=== PATIENT | male | born 1940 | race Caucasian/White ===

== ENCOUNTER 2020-03-04 00:59 | Inpatient (IN) | payer MEDICARE ==
[2020-03-04] MEDS ORDERED: Vancomycin HCl 2.5 GM in Sodium Chloride 0.9% 500 ML IVPB SCH (04:30)
[2020-03-04] MEDS ORDERED: Ondansetron PF 4 MG/2 ML Vial ONE (04:54)
[2020-03-04 08:03] VITALS: BMI 42.5
[2020-03-04] MEDS ORDERED: Amlodipine 5 MG TAB PO SCH (09:00)
[2020-03-04] MEDS ORDERED: Non-Formulary Item 1 EACH (Insulin Detemir [Levemir Flextouch] 100 UNIT/ML Insuln.Pen) SQ SCH (09:07)
[2020-03-04] MEDS ORDERED: Tamsulosin HCl 0.4 MG CAP PO SCH (09:07)
[2020-03-04] MEDS ORDERED: Finasteride 5 MG TAB PO SCH (09:45)
[2020-03-04] MEDS ORDERED: Insulin Glargine 11 UNITS in Pre-Filled Syringe 1 EACH SC SCH (09:45)
[2020-03-04] MEDS: Ondansetron ODT 4 MG TAB PO PRN ×2 (09:58→16:24)
[2020-03-04] MEDS: Tamsulosin HCl 0.4 MG CAP PO SCH (10:59)
[2020-03-04] MEDS: Finasteride 5 MG TAB PO SCH (11:00)
[2020-03-04] MEDS ORDERED: Heparin 1,000 UNITS/ML VIAL ONE (11:21)
[2020-03-04] MEDS ORDERED: Dextrose 5% in Water 1,000 ML IV PRN (12:43)
[2020-03-04] MEDS ORDERED: Dextrose 50% Abboject 50 ML SYRINGE SLOW IVP PRN (12:43)
[2020-03-04] MEDS ORDERED: Piperacillin/Tazobactam 3.375 GM in Sodium Chloride 0.9% 100 ML IVPB SCH (14:00)
[2020-03-04] MEDS ORDERED: Magnevist 469MG/ML 20 ML VIAL ONE (14:27)
[2020-03-04] MEDS: traMADol HCl 50 MG TAB PO SCH ×2 (14:44→20:00)
[2020-03-04] MEDS: Vancomycin 1.5 GRAM/300 ML BAG 1.5 GM in Premix Bag 1 BAG IVPB SCH (14:51)
[2020-03-04] MEDS ORDERED: Promethazine HCl 12.5 MG in Sodium Chloride 0.9% 50 ML IVPB PRN (16:27)
[2020-03-04] MEDS: Simvastatin 10 MG TAB PO SCH (20:01)
[2020-03-04] MEDS: cefTRIAXone\\ROCEPHIN 2 GM in Sodium Chloride 0.9% 100 ML IVPB SCH (20:01)
[2020-03-04] MEDS ORDERED: Non-Formulary Item 1 EACH (Benazepril Hcl [Benazepril Hcl] 40 MG Tablet) PO SCH (21:00)
[2020-03-05] MEDS: traMADol HCl 50 MG TAB PO SCH ×5 (02:14→20:21)
[2020-03-05] MEDS: Vancomycin 1.5 GRAM/300 ML BAG 1.5 GM in Premix Bag 1 BAG IVPB SCH ×2 (02:15→13:18)
[2020-03-05] MEDS: Ondansetron ODT 4 MG TAB PO PRN (03:42)
[2020-03-05] MEDS ORDERED: Sodium Chloride 0.9% 1,000 ML IV SCH (05:45)
[2020-03-05] MEDS ORDERED: Sodium Chloride 0.9% 500 ML IV SCH (05:45)
[2020-03-05] MEDS: Cyclobenzaprine 10 MG TAB PO PRN (06:00)
[2020-03-05] MEDS: Cyanocobalamin (Vitamin B-12) 1,000 MCG TAB PO SCH (08:06)
[2020-03-05] MEDS: Cholecalciferol 1,000 UNITS (25 MCG) TAB PO SCH (08:06)
[2020-03-05] MEDS: Finasteride 5 MG TAB PO SCH (08:07)
[2020-03-05] MEDS: Tamsulosin HCl 0.4 MG CAP PO SCH (08:07)
[2020-03-05] MEDS ORDERED: Non-Formulary Item 1 EACH (Omeprazole [Omeprazole] 20 MG Capsule.Dr) PO SCH (09:00)
[2020-03-05] MEDS ORDERED: Furosemide 40 MG TAB PO SCH (09:00)
[2020-03-05] MEDS ORDERED: Furosemide 80 MG TAB PO SCH (09:00)
[2020-03-05] MEDS ORDERED: Non-Formulary Item 1 EACH (Cyanocobalamin (Vitamin B-12) [Vitamin B12] 2,500 MCG Tablet) PO SCH (09:00)
[2020-03-05] MEDS ORDERED: Lisinopril 20 MG TAB PO SCH ×2 (09:00→15:00)
[2020-03-05] MEDS ORDERED: Non-Formulary Item 1 EACH (Cholecalciferol (Vitamin D3) [Vitamin D3] 5,000 UNITS Capsule) PO SCH (09:00)
[2020-03-05] MEDS: Insulin Glargine 11 UNITS in Pre-Filled Syringe 1 EACH SC SCH (09:40)
[2020-03-05 09:45] LABS: #Basophils 0.1 thou/uL (0.0-0.2); #Lymphocytes 0.9 thou/uL (1.20-3.40); #Monocytes 1.4 thou/uL (0.11-0.59); #Neutrophils 9.9 thou/uL (1.40-6.50); %Basophils 0.5 % (0.0-1.0); %Eosinophils 0.3 % (0.0-10.0); %Lymphocytes 7.7 % (21.0-51.0); %Monocytes 11.2 % (0.0-10.0); %Neutrophils 80.3 % (42.0-75.0); Hemoglobin 12.1 g/dL (14.0-18.0); Mean Corpuscular HGB CONC 34.3 g/dL (32.0-36.0); Mean Corpuscular Hemoglobin 30.6 pg (27.0-31.0); Mean Corpuscular Volume 89.2 fL (78.0-98.0); Mean Platelet Volume 6.5 fL (7.4-10.4); Platelet Count 260 thou/uL (130-400); RBC Distribution Width 11.5 % (11.5-14.5); Red Blood Cell (RBC) Count 3.96 mill/uL (4.70-6.10); White Blood Cell (WBC) Count 12.3 thou/uL (4.8-10.8)
[2020-03-05 10:03] LABS: Anion Gap 17 mmol/L (10-20); BUN (Urea Nitrogen) 23 mg/dL (8.4-25.7); CRP (Inflammatory) 4.27 mg/dL (= or < 0.5); Calc. Creatinine Clearance 56 mL/min (70-130); Calcium 8.3 mg/dL (7.8-10.44); Carbon Dioxide 21 mmol/L (23-31); Chloride 97 mmol/L (98-107); Glucose 92 mg/dL (83-110); Potassium 4.2 mmol/L (3.5-5.1); Sodium 131 mmol/L (136-145)
[2020-03-05] MEDS ORDERED: Amlodipine 5 MG TAB PO SCH (15:00)
[2020-03-05] MEDS: HumaLOG 300 UNITS/3 ML VIAL SC PRN ×2 (16:47→20:34)
[2020-03-05] MEDS: cefTRIAXone\\ROCEPHIN 2 GM in Sodium Chloride 0.9% 100 ML IVPB SCH (20:20)
[2020-03-05] MEDS: Aspirin 81 mg Enteric Coated Tablet PO SCH (20:21)
[2020-03-05] MEDS: Simvastatin 10 MG TAB PO SCH (20:21)
[2020-03-06] MEDS: traMADol HCl 50 MG TAB PO SCH ×4 (01:46→20:15)
[2020-03-06] MEDS: Vancomycin 1.5 GRAM/300 ML BAG 1.5 GM in Premix Bag 1 BAG IVPB SCH ×2 (01:46→13:24)
[2020-03-06] MEDS: Cholecalciferol 1,000 UNITS (25 MCG) TAB PO SCH (08:06)
[2020-03-06] MEDS: Lisinopril 20 MG TAB PO SCH (08:06)
[2020-03-06] MEDS: Finasteride 5 MG TAB PO SCH (08:06)
[2020-03-06] MEDS: Tamsulosin HCl 0.4 MG CAP PO SCH (08:07)
[2020-03-06] MEDS: Amlodipine 5 MG TAB PO SCH (08:08)
[2020-03-06] MEDS: Cyanocobalamin (Vitamin B-12) 1,000 MCG TAB PO SCH (08:09)
[2020-03-06] MEDS: Insulin Glargine 11 UNITS in Pre-Filled Syringe 1 EACH SC SCH (08:09)
[2020-03-06 10:22] LABS: #Basophils 0.1 thou/uL (0.0-0.2); #Eosinphils 0.1 thou/uL (0.0-0.7); #Lymphocytes 0.9 thou/uL (1.20-3.40); #Monocytes 1.5 thou/uL (0.11-0.59); #Neutrophils 8.3 thou/uL (1.40-6.50); %Basophils 0.5 % (0.0-1.0); %Lymphocytes 8.4 % (21.0-51.0); %Monocytes 13.8 % (0.0-10.0); %Neutrophils 76.3 % (42.0-75.0); Hemoglobin 11.3 g/dL (14.0-18.0); Mean Corpuscular HGB CONC 34.2 g/dL (32.0-36.0); Mean Corpuscular Hemoglobin 30.4 pg (27.0-31.0); Mean Corpuscular Volume 88.8 fL (78.0-98.0); Mean Platelet Volume 6.9 fL (7.4-10.4); Platelet Count 218 thou/uL (130-400); RBC Distribution Width 11.5 % (11.5-14.5); Red Blood Cell (RBC) Count 3.71 mill/uL (4.70-6.10); White Blood Cell (WBC) Count 10.9 thou/uL (4.8-10.8)
[2020-03-06 10:38] LABS: Anion Gap 16 mmol/L (10-20); BUN (Urea Nitrogen) 33 mg/dL (8.4-25.7); Calc. Creatinine Clearance 48 mL/min (70-130); Calcium 8.2 mg/dL (7.8-10.44); Carbon Dioxide 18 mmol/L (23-31); Chloride 95 mmol/L (98-107); Glucose 107 mg/dL (83-110); Potassium 4.2 mmol/L (3.5-5.1); Sodium 125 mmol/L (136-145)
[2020-03-06] MEDS: Ondansetron ODT 4 MG TAB PO PRN (10:55)
[2020-03-06] MEDS: HumaLOG 300 UNITS/3 ML VIAL SC PRN ×2 (16:49→22:11)
[2020-03-06] MEDS ORDERED: Sodium Chloride 0.9% 500 ML IV SCH (18:45)
[2020-03-06] MEDS: cefTRIAXone\\ROCEPHIN 2 GM in Sodium Chloride 0.9% 100 ML IVPB SCH (20:15)
[2020-03-06] MEDS: Simvastatin 10 MG TAB PO SCH (20:15)
[2020-03-06] MEDS: Aspirin 81 mg Enteric Coated Tablet PO SCH (20:24)
[2020-03-07] MEDS: Vancomycin 1.5 GRAM/300 ML BAG 1.5 GM in Premix Bag 1 BAG IVPB SCH (03:00)
[2020-03-07] MEDS: traMADol HCl 50 MG TAB PO SCH ×4 (03:01→20:24)
[2020-03-07 05:57] LABS: #Eosinphils 0.2 thou/uL (0.0-0.7); #Lymphocytes 1.2 thou/uL (1.20-3.40); #Monocytes 1.1 thou/uL (0.11-0.59); #Neutrophils 7.4 thou/uL (1.40-6.50); %Basophils 0.4 % (0.0-1.0); %Eosinophils 1.6 % (0.0-10.0); %Lymphocytes 11.7 % (21.0-51.0); %Monocytes 11.5 % (0.0-10.0); %Neutrophils 74.9 % (42.0-75.0); Hemoglobin 10.6 g/dL (14.0-18.0); Mean Corpuscular Hemoglobin 30.3 pg (27.0-31.0); Mean Corpuscular Volume 89.2 fL (78.0-98.0); Platelet Count 252 thou/uL (130-400); RBC Distribution Width 11.5 % (11.5-14.5); Red Blood Cell (RBC) Count 3.51 mill/uL (4.70-6.10); White Blood Cell (WBC) Count 9.9 thou/uL (4.8-10.8)
[2020-03-07 06:17] LABS: Anion Gap 17 mmol/L (10-20); BUN (Urea Nitrogen) 42 mg/dL (8.4-25.7); CRP (Inflammatory) 15.94 mg/dL (= or < 0.5); Calc. Creatinine Clearance 32 mL/min (70-130); Calcium 8.1 mg/dL (7.8-10.44); Carbon Dioxide 16 mmol/L (23-31); Chloride 95 mmol/L (98-107); Glucose 113 mg/dL (83-110); Potassium 4.4 mmol/L (3.5-5.1); Sodium 124 mmol/L (136-145)
[2020-03-07] MEDS: Tamsulosin HCl 0.4 MG CAP PO SCH (08:00)
[2020-03-07] MEDS: Cholecalciferol 1,000 UNITS (25 MCG) TAB PO SCH (08:00)
[2020-03-07] MEDS: Finasteride 5 MG TAB PO SCH (08:00)
[2020-03-07] MEDS: Cyanocobalamin (Vitamin B-12) 1,000 MCG TAB PO SCH (08:01)
[2020-03-07] MEDS: Amlodipine 5 MG TAB PO SCH (08:01)
[2020-03-07] MEDS: Lisinopril 20 MG TAB PO SCH (08:01)
[2020-03-07] MEDS: Insulin Glargine 11 UNITS in Pre-Filled Syringe 1 EACH SC SCH (08:48)
[2020-03-07] MEDS: HumaLOG 300 UNITS/3 ML VIAL SC PRN ×2 (12:44→17:29)
[2020-03-07 13:49] LABS: Vancomycin, Trough 58.7 ug/mL
[2020-03-07] MEDS ORDERED: Vancomycin 1.5 GRAM/300 ML BAG 1.5 GM in Premix Bag 1 BAG IVPB SCH (14:00)
[2020-03-07] MEDS: Dronabinol 2.5 MG CAP PO SCH (17:29)
[2020-03-07 18:23] LABS: Anion Gap 17 mmol/L (10-20); BUN (Urea Nitrogen) 49 mg/dL (8.4-25.7); Calc. Creatinine Clearance 30 mL/min (70-130); Calcium 8.1 mg/dL (7.8-10.44); Carbon Dioxide 18 mmol/L (23-31); Chloride 93 mmol/L (98-107); Glucose 160 mg/dL (83-110); Potassium 4.6 mmol/L (3.5-5.1); Sodium 123 mmol/L (136-145)
[2020-03-07] MEDS: Ondansetron ODT 4 MG TAB PO PRN (18:29)
[2020-03-07] MEDS: Aspirin 81 mg Enteric Coated Tablet PO SCH (20:24)
[2020-03-07] MEDS: Simvastatin 10 MG TAB PO SCH (20:24)
[2020-03-07] MEDS: cefTRIAXone\\ROCEPHIN 2 GM in Sodium Chloride 0.9% 100 ML IVPB SCH (20:25)
[2020-03-08] MEDS: traMADol HCl 50 MG TAB PO SCH ×4 (03:05→19:56)
[2020-03-08] MEDS: Dronabinol 2.5 MG CAP PO SCH ×2 (06:38→16:50)
[2020-03-08 06:57] LABS: #Eosinphils 0.2 thou/uL (0.0-0.7); #Lymphocytes 0.8 thou/uL (1.20-3.40); #Monocytes 0.9 thou/uL (0.11-0.59); #Neutrophils 6.2 thou/uL (1.40-6.50); %Basophils 0.4 % (0.0-1.0); %Eosinophils 2.7 % (0.0-10.0); %Lymphocytes 10.1 % (21.0-51.0); %Monocytes 10.5 % (0.0-10.0); %Neutrophils 76.2 % (42.0-75.0); Hemoglobin 11.2 g/dL (14.0-18.0); Mean Corpuscular HGB CONC 34.4 g/dL (32.0-36.0); Mean Corpuscular Hemoglobin 30.7 pg (27.0-31.0); Mean Corpuscular Volume 89.5 fL (78.0-98.0); Mean Platelet Volume 6.9 fL (7.4-10.4); Platelet Count 199 thou/uL (130-400); RBC Distribution Width 11.3 % (11.5-14.5); Red Blood Cell (RBC) Count 3.65 mill/uL (4.70-6.10); White Blood Cell (WBC) Count 8.1 thou/uL (4.8-10.8)
[2020-03-08 07:07] LABS: Anion Gap 20 mmol/L (10-20); BUN (Urea Nitrogen) 50 mg/dL (8.4-25.7); CRP (Inflammatory) 11.81 mg/dL (= or < 0.5); Calc. Creatinine Clearance 32 mL/min (70-130); Calcium 8.2 mg/dL (7.8-10.44); Carbon Dioxide 13 mmol/L (23-31); Chloride 96 mmol/L (98-107); Glucose 129 mg/dL (83-110); Potassium 4.6 mmol/L (3.5-5.1); Sodium 124 mmol/L (136-145)
[2020-03-08] MEDS: Cholecalciferol 1,000 UNITS (25 MCG) TAB PO SCH (09:04)
[2020-03-08] MEDS: Finasteride 5 MG TAB PO SCH (09:05)
[2020-03-08] MEDS: Cyanocobalamin (Vitamin B-12) 1,000 MCG TAB PO SCH (09:05)
[2020-03-08] MEDS: Tamsulosin HCl 0.4 MG CAP PO SCH (09:05)
[2020-03-08] MEDS: Insulin Glargine 11 UNITS in Pre-Filled Syringe 1 EACH SC SCH (09:31)
[2020-03-08 13:45] LABS: Vancomycin, Random 46.2 ug/mL (See Comment)
[2020-03-08] MEDS: HumaLOG 300 UNITS/3 ML VIAL SC PRN (16:36)
[2020-03-08 17:00] LABS: Anion Gap 15 mmol/L (10-20); BUN (Urea Nitrogen) 54 mg/dL (8.4-25.7); Calc. Creatinine Clearance 37 mL/min (70-130); Calcium 8.5 mg/dL (7.8-10.44); Carbon Dioxide 19 mmol/L (23-31); Chloride 94 mmol/L (98-107); Glucose 150 mg/dL (83-110); Potassium 4.7 mmol/L (3.5-5.1); Sodium 123 mmol/L (136-145)
[2020-03-08] MEDS ORDERED: Sodium Chloride 1 GM TAB PO SCH (19:00)
[2020-03-08] MEDS: cefTRIAXone\\ROCEPHIN 2 GM in Sodium Chloride 0.9% 100 ML IVPB SCH (19:54)
[2020-03-08] MEDS: Simvastatin 10 MG TAB PO SCH (19:56)
[2020-03-08] MEDS: Aspirin 81 mg Enteric Coated Tablet PO SCH (19:57)
[2020-03-09] MEDS: traMADol HCl 50 MG TAB PO SCH ×4 (00:59→20:20)
[2020-03-09] MEDS: Ondansetron ODT 4 MG TAB PO PRN (02:47)
[2020-03-09] MEDS: Dronabinol 2.5 MG CAP PO SCH ×2 (06:02→16:12)
[2020-03-09] MEDS: Tamsulosin HCl 0.4 MG CAP PO SCH (08:14)
[2020-03-09] MEDS: Cholecalciferol 1,000 UNITS (25 MCG) TAB PO SCH (08:14)
[2020-03-09] MEDS: Cyanocobalamin (Vitamin B-12) 1,000 MCG TAB PO SCH (08:14)
[2020-03-09] MEDS: Finasteride 5 MG TAB PO SCH (08:14)
[2020-03-09 08:26] LABS: #Eosinphils 0.2 thou/uL (0.0-0.7); #Monocytes 0.7 thou/uL (0.11-0.59); #Neutrophils 5.2 thou/uL (1.40-6.50); %Basophils 0.4 % (0.0-1.0); %Eosinophils 2.3 % (0.0-10.0); %Lymphocytes 13.6 % (21.0-51.0); %Monocytes 10.3 % (0.0-10.0); %Neutrophils 73.4 % (42.0-75.0); Hemoglobin 11.6 g/dL (14.0-18.0); Mean Corpuscular HGB CONC 34.3 g/dL (32.0-36.0); Mean Corpuscular Hemoglobin 30.3 pg (27.0-31.0); Mean Corpuscular Volume 88.3 fL (78.0-98.0); Mean Platelet Volume 6.8 fL (7.4-10.4); Platelet Count 213 thou/uL (130-400); RBC Distribution Width 11.3 % (11.5-14.5); Red Blood Cell (RBC) Count 3.83 mill/uL (4.70-6.10); White Blood Cell (WBC) Count 7.1 thou/uL (4.8-10.8)
[2020-03-09 08:45] LABS: Anion Gap 18 mmol/L (10-20); BUN (Urea Nitrogen) 49 mg/dL (8.4-25.7); Calc. Creatinine Clearance 55 mL/min (70-130); Calcium 8.7 mg/dL (7.8-10.44); Carbon Dioxide 17 mmol/L (23-31); Chloride 99 mmol/L (98-107); Glucose 121 mg/dL (83-110); Potassium 4.9 mmol/L (3.5-5.1); Sodium 129 mmol/L (136-145)
[2020-03-09] MEDS ORDERED: Sodium Chloride 1 GM TAB PO SCH (09:00)
[2020-03-09] MEDS: Insulin Glargine 11 UNITS in Pre-Filled Syringe 1 EACH SC SCH (09:17)
[2020-03-09 13:21] LABS: Anion Gap 14 mmol/L (10-20); BUN (Urea Nitrogen) 50 mg/dL (8.4-25.7); Calc. Creatinine Clearance 60 mL/min (70-130); Calcium 8.7 mg/dL (7.8-10.44); Carbon Dioxide 19 mmol/L (23-31); Chloride 98 mmol/L (98-107); Glucose 119 mg/dL (83-110); Potassium 4.8 mmol/L (3.5-5.1); Sodium 126 mmol/L (136-145)
[2020-03-09] MEDS: Sodium Bicarbonate Tab 325 MG TAB PO SCH ×2 (15:22→20:22)
[2020-03-09] MEDS ORDERED: Simethicone Chewable 80 MG TAB PO PRN (16:00)
[2020-03-09 17:22] LABS: Anion Gap 12 mmol/L (10-20); BUN (Urea Nitrogen) 48 mg/dL (8.4-25.7); Calc. Creatinine Clearance 64 mL/min (70-130); Calcium 8.7 mg/dL (7.8-10.44); Carbon Dioxide 22 mmol/L (23-31); Chloride 98 mmol/L (98-107); Glucose 137 mg/dL (83-110); Potassium 4.7 mmol/L (3.5-5.1); Sodium 127 mmol/L (136-145)
[2020-03-09] MEDS: cefTRIAXone\\ROCEPHIN 2 GM in Sodium Chloride 0.9% 100 ML IVPB SCH (20:20)
[2020-03-09] MEDS: Aspirin 81 mg Enteric Coated Tablet PO SCH (20:22)
[2020-03-09] MEDS: Simvastatin 10 MG TAB PO SCH (20:23)
[2020-03-09 21:36] LABS: Anion Gap 13 mmol/L (10-20); BUN (Urea Nitrogen) 43 mg/dL (8.4-25.7); Calc. Creatinine Clearance 66 mL/min (70-130); Calcium 8.6 mg/dL (7.8-10.44); Carbon Dioxide 22 mmol/L (23-31); Chloride 99 mmol/L (98-107); Glucose 186 mg/dL (83-110); Potassium 4.7 mmol/L (3.5-5.1); Sodium 129 mmol/L (136-145)
[2020-03-09] MEDS: Labetalol HCl 100 MG/20 ML VIAL SLOW IVP PRN (23:50)
[2020-03-10] MEDS: Cyclobenzaprine 10 MG TAB PO PRN (00:47)
[2020-03-10] MEDS: traMADol HCl 50 MG TAB PO SCH ×4 (01:20→20:00)
[2020-03-10 06:13] LABS: Anion Gap 14 mmol/L (10-20); BUN (Urea Nitrogen) 42 mg/dL (8.4-25.7); Calc. Creatinine Clearance 81 mL/min (70-130); Calcium 8.8 mg/dL (7.8-10.44); Carbon Dioxide 22 mmol/L (23-31); Chloride 100 mmol/L (98-107); Glucose 134 mg/dL (83-110); Potassium 4.9 mmol/L (3.5-5.1); Sodium 131 mmol/L (136-145)
[2020-03-10] MEDS: Dronabinol 2.5 MG CAP PO SCH ×2 (06:40→17:54)
[2020-03-10] MEDS: Sodium Bicarbonate Tab 325 MG TAB PO SCH ×3 (09:02→20:00)
[2020-03-10] MEDS: Cholecalciferol 1,000 UNITS (25 MCG) TAB PO SCH (09:02)
[2020-03-10] MEDS: Insulin Glargine 11 UNITS in Pre-Filled Syringe 1 EACH SC SCH (09:02)
[2020-03-10] MEDS: Cyanocobalamin (Vitamin B-12) 1,000 MCG TAB PO SCH (09:03)
[2020-03-10] MEDS: Finasteride 5 MG TAB PO SCH (09:04)
[2020-03-10] MEDS: Tamsulosin HCl 0.4 MG CAP PO SCH (09:04)
[2020-03-10 09:24] LABS: Anion Gap 13 mmol/L (10-20); BUN (Urea Nitrogen) 40 mg/dL (8.4-25.7); Calc. Creatinine Clearance 82 mL/min (70-130); Calcium 8.9 mg/dL (7.8-10.44); Carbon Dioxide 24 mmol/L (23-31); Chloride 97 mmol/L (98-107); Glucose 129 mg/dL (83-110); Potassium 4.8 mmol/L (3.5-5.1); Sodium 129 mmol/L (136-145)
[2020-03-10] MEDS ORDERED: Carvedilol 6.25 MG TAB PO SCH (09:45)
[2020-03-10 13:26] LABS: Anion Gap 12 mmol/L (10-20); BUN (Urea Nitrogen) 39 mg/dL (8.4-25.7); Calc. Creatinine Clearance 84 mL/min (70-130); Calcium 8.8 mg/dL (7.8-10.44); Carbon Dioxide 25 mmol/L (23-31); Chloride 98 mmol/L (98-107); Glucose 132 mg/dL (83-110); Sodium 130 mmol/L (136-145)
[2020-03-10] MEDS ORDERED: Bisacodyl 5 MG TAB PO PRN (14:03)
[2020-03-10] MEDS ORDERED: Polyethylene Glycol 3350 17 GM Packet PO SCH (14:15)
[2020-03-10] MEDS ORDERED: Furosemide 40 MG/4 ML VIAL SLOW IVP SCH (16:15)
[2020-03-10] MEDS: Carvedilol 6.25 MG TAB PO SCH (17:54)
[2020-03-10] MEDS: HumaLOG 300 UNITS/3 ML VIAL SC PRN (17:55)
[2020-03-10] MEDS: Simvastatin 10 MG TAB PO SCH (20:00)
[2020-03-10] MEDS: cefTRIAXone\\ROCEPHIN 2 GM in Sodium Chloride 0.9% 100 ML IVPB SCH (20:00)
[2020-03-10] MEDS: Aspirin 81 mg Enteric Coated Tablet PO SCH (20:00)
[2020-03-11] MEDS: Labetalol HCl 100 MG/20 ML VIAL SLOW IVP PRN (00:26)
[2020-03-11] MEDS: traMADol HCl 50 MG TAB PO SCH ×4 (01:10→20:01)
[2020-03-11 05:36] LABS: #Basophils 0.1 thou/uL (0.0-0.2); #Eosinphils 0.4 thou/uL (0.0-0.7); #Lymphocytes 1.1 thou/uL (1.20-3.40); #Monocytes 0.8 thou/uL (0.11-0.59); #Neutrophils 4.3 thou/uL (1.40-6.50); %Basophils 1.3 % (0.0-1.0); %Eosinophils 6.6 % (0.0-10.0); %Lymphocytes 15.9 % (21.0-51.0); %Monocytes 12.4 % (0.0-10.0); %Neutrophils 63.7 % (42.0-75.0); Hemoglobin 11.8 g/dL (14.0-18.0); Mean Corpuscular HGB CONC 33.1 g/dL (32.0-36.0); Mean Corpuscular Hemoglobin 29.5 pg (27.0-31.0); Mean Platelet Volume 6.9 fL (7.4-10.4); Platelet Count 200 thou/uL (130-400); RBC Distribution Width 11.6 % (11.5-14.5); White Blood Cell (WBC) Count 6.7 thou/uL (4.8-10.8)
[2020-03-11 05:51] LABS: Anion Gap 14 mmol/L (10-20); BUN (Urea Nitrogen) 35 mg/dL (8.4-25.7); Calc. Creatinine Clearance 99 mL/min (70-130); Calcium 8.7 mg/dL (7.8-10.44); Carbon Dioxide 22 mmol/L (23-31); Chloride 100 mmol/L (98-107); Glucose 117 mg/dL (83-110); Potassium 4.7 mmol/L (3.5-5.1); Sodium 131 mmol/L (136-145)
[2020-03-11] MEDS: Dronabinol 2.5 MG CAP PO SCH ×2 (06:31→17:26)
[2020-03-11] MEDS: Cholecalciferol 1,000 UNITS (25 MCG) TAB PO SCH (08:24)
[2020-03-11] MEDS: Sodium Bicarbonate Tab 325 MG TAB PO SCH ×3 (08:24→20:01)
[2020-03-11] MEDS: Finasteride 5 MG TAB PO SCH (08:26)
[2020-03-11] MEDS: Polyethylene Glycol 3350 17 GM Packet PO SCH (08:26)
[2020-03-11] MEDS: Carvedilol 6.25 MG TAB PO SCH ×2 (08:26→17:26)
[2020-03-11] MEDS: Cyanocobalamin (Vitamin B-12) 1,000 MCG TAB PO SCH (08:26)
[2020-03-11] MEDS: Tamsulosin HCl 0.4 MG CAP PO SCH (08:26)
[2020-03-11] MEDS: Insulin Glargine 11 UNITS in Pre-Filled Syringe 1 EACH SC SCH (08:36)
[2020-03-11] MEDS ORDERED: Furosemide 40 MG/4 ML VIAL SLOW IVP SCH (10:15)
[2020-03-11] MEDS: Cyclobenzaprine 10 MG TAB PO PRN ×2 (10:34→10:38)
[2020-03-11 10:39] LABS: Vancomycin, Random 17.1 ug/mL (See Comment)
[2020-03-11] MEDS ORDERED: Vancomycin 1.5 GRAM/300 ML BAG 1.5 GM in Premix Bag 1 BAG IVPB SCH (11:00)
[2020-03-11 13:17] LABS: ALT (SGPT) 16 U/L (8-55); AST (SGOT) 19 U/L (5-34); Albumin 2.9 g/dL (3.4-4.8); Alkaline Phosphatase 73 U/L (40-110); Bilirubin, Direct 0.3 mg/dL (0.1-0.3); Bilirubin, Total 0.5 mg/dL (0.2-1.2); Protein, Total 6.1 g/dL (5.8-8.1)
[2020-03-11] MEDS: Aspirin 81 mg Enteric Coated Tablet PO SCH (20:01)
[2020-03-11] MEDS: cefTRIAXone\\ROCEPHIN 2 GM in Sodium Chloride 0.9% 100 ML IVPB SCH (20:01)
[2020-03-11] MEDS: Simvastatin 10 MG TAB PO SCH (20:02)
[2020-03-12] MEDS: traMADol HCl 50 MG TAB PO SCH ×3 (01:13→15:15)
[2020-03-12 06:17] LABS: Anion Gap 13 mmol/L (10-20); BUN (Urea Nitrogen) 31 mg/dL (8.4-25.7); Calc. Creatinine Clearance 103 mL/min (70-130); Calcium 8.7 mg/dL (7.8-10.44); Carbon Dioxide 24 mmol/L (23-31); Chloride 99 mmol/L (98-107); Glucose 114 mg/dL (83-110); Potassium 4.2 mmol/L (3.5-5.1); Sodium 132 mmol/L (136-145)
[2020-03-12] MEDS: Dronabinol 2.5 MG CAP PO SCH ×2 (07:14→18:33)
[2020-03-12] MEDS ORDERED: Furosemide 40 MG/4 ML VIAL SLOW IVP SCH (09:15)
[2020-03-12] MEDS: Ondansetron ODT 4 MG TAB PO PRN (09:25)
[2020-03-12] MEDS: Finasteride 5 MG TAB PO SCH (09:27)
[2020-03-12] MEDS: Sodium Bicarbonate Tab 325 MG TAB PO SCH ×2 (09:27→15:15)
[2020-03-12] MEDS: Carvedilol 6.25 MG TAB PO SCH ×2 (09:27→18:32)
[2020-03-12] MEDS: Cyanocobalamin (Vitamin B-12) 1,000 MCG TAB PO SCH (09:27)
[2020-03-12] MEDS: Cholecalciferol 1,000 UNITS (25 MCG) TAB PO SCH (09:27)
[2020-03-12] MEDS: Tamsulosin HCl 0.4 MG CAP PO SCH (09:27)
[2020-03-12] MEDS: Insulin Glargine 11 UNITS in Pre-Filled Syringe 1 EACH SC SCH (11:10)
[2020-03-12] MEDS: Polyethylene Glycol 3350 17 GM Packet PO SCH (11:28)
[2020-03-12 16:47] VITALS: TEMP 98
[2020-03-12] MEDS: Cyclobenzaprine 10 MG TAB PO PRN (18:32)
[2020-03-12 18:33] VITALS: BP 186/70
== END 2020-03-12 18:49 | DRG 552 ==
LOC: ERS 00:59 → SURG A 04:06
PROVIDERS: ADMIT Internal Medicine; ATTEND Internal Medicine
PROC: 02HV33Z Insertion of Infusion Device into Superior Vena Cava, Percutaneous Approach (ICD-10-PCS; principal; 2020-03-09)
PROC: B548ZZA Ultrasonography of Superior Vena Cava, Guidance (ICD-10-PCS; 2020-03-09)
DX: M46.46 Discitis, unspecified, lumbar region (principal); S32.040A Wedge compression fracture of fourth lumbar vertebra, initial encounter for closed fracture; G82.20 Paraplegia, unspecified; G99.2 Myelopathy in diseases classified elsewhere; E87.1 Hypo-osmolality and hyponatremia; N17.9 Acute kidney failure, unspecified; E87.2 Acidosis; Z68.41 Body mass index [BMI] 40.0-44.9, adult; Z20.822 Contact with and (suspected) exposure to COVID-19; M25.561 Pain in right knee; I16.0 Hypertensive urgency; M48.061 Spinal stenosis, lumbar region without neurogenic claudication; N40.0 Benign prostatic hyperplasia without lower urinary tract symptoms; D72.829 Elevated white blood cell count, unspecified; I12.9 Hypertensive chronic kidney disease with stage 1 through stage 4 chronic kidney disease, or unspecified chronic kidney disease; N18.30 Chronic kidney disease, stage 3 unspecified; D63.1 Anemia in chronic kidney disease; E11.22 Type 2 diabetes mellitus with diabetic chronic kidney disease; E66.9 Obesity, unspecified; E87.5 Hyperkalemia; Z79.4 Long term (current) use of insulin; Z90.49 Acquired absence of other specified parts of digestive tract; Z79.899 Other long term (current) drug therapy; X50.1XXA Overexertion from prolonged static or awkward postures, initial encounter
CPT/HCPCS: 36415; 36416; 36569; 72158; 76770; 80048; 80076; 80202; 82570; 83880; 83935; 84300; 84550; 84560; 85025; 86140; 87040; 87086; 96365; 96366; 96375; A9579; C1751; J0696; J1644; J1815; J1940; J2405; J2543; J2550; J3370; J3490; J7030; L0639; Q0162; Q0167